=== PATIENT | female | born 1995 | race Caucasian/White ===

== ENCOUNTER → 2018-03-04 | Outpatient (CLI) | payer MEDICAID | LOC: FIMAGING 10:47 | PROVIDERS: ATTEND Physician Assistant | DX: O26.843 Uterine size-date discrepancy, third trimester (principal); Z3A.28 28 weeks gestation of pregnancy | CPT/HCPCS: 86644-90; 86645-90; 86777-90; 86778-90 ==

== ENCOUNTER → 2018-03-18 | Outpatient (CLI) | payer MEDICAID | LOC: FIMAGING 07:30 | PROVIDERS: ATTEND Physician Assistant | DX: O36.5930 Maternal care for other known or suspected poor fetal growth, third trimester, not applicable or unspecified (principal); Z3A.30 30 weeks gestation of pregnancy ==

== ENCOUNTER → 2018-03-25 | Outpatient (CLI) | payer MEDICAID | LOC: FIMAGING 09:58 | PROVIDERS: ATTEND Physician Assistant | DX: O36.5930 Maternal care for other known or suspected poor fetal growth, third trimester, not applicable or unspecified (principal); Z3A.31 31 weeks gestation of pregnancy ==

== ENCOUNTER → 2018-04-15 | Outpatient (CLI) | payer MEDICAID | LOC: FIMAGING 10:36 | PROVIDERS: ATTEND Physician Assistant | DX: O36.8930 Maternal care for other specified fetal problems, third trimester, not applicable or unspecified (principal); Z3A.34 34 weeks gestation of pregnancy ==